=== PATIENT | male | born 1960 ===

== ENCOUNTER 2021-04-12 14:26 | Outpatient (REF) | payer MEDICAID, SELFPAY ==
[2021-04-12 22:08] LABS: Anion Gap 10.3 mmol/L (3-11); BUN 12 mg/dL (7-18); CO2 28.7 mmol/L (21.0-32.0); CREATININE 1.3 mg/dL (0.70-1.30); Calculated LDL 110 mg/dL (<100); Chloride 104 mmol/L (98-107); Cholesterol 175 mg/dL (<200); Glucose 99 mg/dL (74-106); HDL Cholesterol 40 mg/dL (40-60); Potassium 4.1 mmol/L (3.5-5.1); Sodium 143 mmol/L (136-145); Triglyceride 129 mg/dL (<150)
[2021-04-14 10:20] LABS: Hepatitis C Ab w Rflx HCV PCR Negative (Negative)
== END 2021-04-12 14:27 | disposition home or self-care (01) ==
LOC: NCHCN 14:26
PROVIDERS: Visit Provider Nurse Practitioner Family
DX: Z00.00 Encounter for general adult medical examination without abnormal findings (principal); F41.8 Other specified anxiety disorders; E66.9 Obesity, unspecified; Z13.220 Encounter for screening for lipoid disorders; Z11.59 Encounter for screening for other viral diseases
CPT/HCPCS: 80048; 80061; 86803; 87389